=== PATIENT | male | born 1950 | race Caucasian/White ===

== ENCOUNTER → 2018-11-08 | Day surgery (SDC) | payer OTHER ==
[2018-11-04 09:47] LABS: Urine WBC None Seen /hpf (0 - 3)
[2018-11-04 09:54] LABS: Urine Bacteria NONE SEEN /hpf (None Seen); Urine Blood Negative /uL (Negative); Urine Specific Gravity 1.007 (1.001-1.035)
[2018-11-04 10:00] LABS: Eosinophils # (auto) 0.4 uL; Lymphocytes # (auto) 1.1 uL; Mean Corpuscular Hgb Conc. 32.3 g/dL (32.0-36.0); Neutrophils # (auto) 6.6 uL; White Blood Cell 8.8 10^3/uL (4.4-10.8)
[2018-11-04 10:02] LABS: Basophils # (auto) 0 uL; Basophils % (auto) 0.5 % (0.0-2.0); Eosinophils % (auto) 5.1 % (0.0-7.0); Hemoglobin 14.2 g/dL (13.5-17.5); Lymphocytes % (auto) 12.1 % (10.0-50.0); Mean Corpuscular Volume 71.2 fL (80.0-100.0); Monocytes # (auto) 0.7 uL; Monocytes % (auto) 7.4 % (0.0-12.0); Neutrophils % (auto) 74.9 % (37.0-80.0); Nucleated Red Blood Cells % 0.1 %; Platelet Count (auto) 254 10^3/uL (140-450); Red Blood Cells 6.17 10^6/uL (4.5-5.90); Red Cell Distribution Width 18.1 % (11.8-14.3)
[2018-11-04 10:17] LABS: Alanine Aminotransferase 56 U/L (16-61); Albumin 3.5 g/dL (3.4-5.0); Anion Gap 4 (5-15); Aspartate Aminotransferase 34 U/L (15-37); Blood Urea Nitrogen 9 mg/dL (7-18); Calcium 8.2 mg/dL (8.5-10.1); Carbon Dioxide 27 mmol/L (21-32); Chloride 109 mmol/L (98-107); Glucose 108 mg/dL (74-106); Potassium 4.2 mmol/L (3.5-5.1); Sodium 140 mmol/L (136-145)
[2018-11-04 10:20] LABS: Alkaline Phosphatase 98 U/L (45-117); Bilirubin, Total 0.4 mg/dL (0.2-1.0); GFR African American > 60 mL/min; GFR Non-African American > 60 mL/min; Total Protein 7.4 g/dL (6.4-8.2)
[2018-11-04 10:25] LABS: INR 0.97 (0.9-1.15); Prothrombin Time 10.4 sec (9.27-12.13)
[~2018-11-08] VITALS: Ht 185.4 cm; Wt 131.5 kg
[~2018-11-08] MED LIST: ATEN-60 PO; BACL10TA PO; CALC-386 OR; CHOL20007 PO; CYAN1TAB14 PO; DOXA1TAB42 PO; FINA5TAB4 PO; FURO40TA4 PO; GABA100C9 PO; LISI-646 PO; MAGN250T22 PO; OMEG100078 PO; OMEP20TA PO; POTA1TAB61 PO; SILO8CAP2 PO; VITA400T4 PO; ZINC50TA35 PO
== END | disposition home or self-care (01) ==
LOC: SUR 11:24
PROVIDERS: ATTEND Urology
DX: N40.1 Benign prostatic hyperplasia with lower urinary tract symptoms (principal); Z53.8 Procedure and treatment not carried out for other reasons; J45.909 Unspecified asthma, uncomplicated; E66.9 Obesity, unspecified; F17.210 Nicotine dependence, cigarettes, uncomplicated; Z88.6 Allergy status to analgesic agent; Z88.8 Allergy status to other drugs, medicaments and biological substances; Z98.890 Other specified postprocedural states
CPT/HCPCS: 36415; 80053; 81001; 85025; 85610; 85730; 87086

== ENCOUNTER → 2019-01-14 | Day surgery (SDC) | payer OTHER ==
[2019-01-10 11:57] LABS: Basophils # (auto) 0.1 uL; Eosinophils # (auto) 0.5 uL; Monocytes # (auto) 0.6 uL; Neutrophils # (auto) 6.6 uL; Red Cell Distribution Width 18.8 % (11.8-14.3); White Blood Cell 8.8 10^3/uL (4.4-10.8)
[2019-01-10 11:59] LABS: Basophils % (auto) 0.7 % (0.0-2.0); Eosinophils % (auto) 5.4 % (0.0-7.0); Hematocrit 42.1 % (41.0-53.0); Hemoglobin 13.7 g/dL (13.5-17.5); Lymphocytes # (auto) 1.2 uL; Mean Corpuscular Hgb Conc. 32.4 g/dL (32.0-36.0); Mean Corpuscular Volume 70.7 fL (80.0-100.0); Monocytes % (auto) 6.6 % (0.0-12.0); Neutrophils % (auto) 74.3 % (37.0-80.0); Nucleated Red Blood Cells % 0.1 %; Platelet Count (auto) 204 10^3/uL (140-450); Red Blood Cells 5.95 10^6/uL (4.5-5.90)
[2019-01-10 12:11] LABS: INR 0.96 (0.9-1.15); Partial Thromboplastin Time 24.3 sec (23.78-33.04); Prothrombin Time 10.3 sec (9.27-12.13)
[2019-01-10 12:13] LABS: BUN/Creatinine Ratio 12.2; Calcium 8.7 mg/dL (8.5-10.1); Potassium 4.1 mmol/L (3.5-5.1)
[2019-01-10 12:22] LABS: Urine Bacteria NONE SEEN /hpf (None Seen); Urine Blood Negative /uL (Negative); Urine Specific Gravity 1.009 (1.001-1.035); Urine WBC <1 /hpf (0 - 3)
[~2019-01-14] VITALS: Ht 185.4 cm; Wt 131.5 kg
[~2019-01-14] MED LIST changes: +ALBUTEROL SULFATE 90 MCG MDI IN ONE; +CIPROFLOXACIN 400MG/200ML 200 ML IV ONE; +CLINDAMYCIN 600MG IV 0 ML IV ONE; +GLYCOPYRROLATE 0.2 MG/ML 1ML VIAL IV ONE; +LIDOCAINE 2% JELLY 11ml (GLYDO) ONE; +MIDAZOLAM HCL 1MG/1ML-2 ML VIAL ONE; +NEOSTIGMINE 1 MG/ML INJ (10mg/10ML VIAL) IV ONE; +ONDANSETRON HCL 4 MG/2 ML VIAL IV ONE; +PROPOFOL 10 MG/ML 20 ML IV ONE; +ROCURONIUM 10MG/ML 10ML VIAL IV ONE; +SUCCINYLCHOLINE CHLORIDE 20 MG/ML 10ML VIAL IV ONE; +fentaNYL CITRATE 100 MCG/2 ML VL ONE
[2019-01-14 10:28] VITALS: BP 102/67
== END | disposition home or self-care (01) ==
LOC: SUR 06:00
PROVIDERS: ATTEND Urology
DX: N40.1 Benign prostatic hyperplasia with lower urinary tract symptoms (principal); J45.909 Unspecified asthma, uncomplicated; E66.9 Obesity, unspecified; I10 Essential (primary) hypertension; Z88.8 Allergy status to other drugs, medicaments and biological substances; Z68.38 Body mass index [BMI] 38.0-38.9, adult; Z98.890 Other specified postprocedural states; Z88.3 Allergy status to other anti-infective agents; R97.20 Elevated prostate specific antigen [PSA]; R35.1 Nocturia; Z82.49 Family history of ischemic heart disease and other diseases of the circulatory system; Z85.820 Personal history of malignant melanoma of skin; Z79.899 Other long term (current) drug therapy
CPT/HCPCS: 36415; 52601; 80048; 81001; 85025; 85610; 85730; 87086; J0330; J0744; J2250; J2704; J3010; J3490